=== PATIENT | female | born 2000 | race Hispanic/Latino ===

== ENCOUNTER 2023-01-23 17:31 | Emergency (ER) | payer OTHER ==
[~2023-01-23] VITALS: Ht 157.5 cm; Wt 97.5 kg
[2023-01-23 18:06] LABS: BASOPHILS # (AUTO) 0.03 K/uL (0.00-0.20); BASOPHILS % (AUTO) 0.2 % (0.0-5.0); EOSINOPHILS # (AUTO) 0.41 K/uL (0.00-0.70); EOSINOPHILS % (AUTO) 3.2 % (0.0-8.0); IMMATURE GRANULOCYTE ABSOLUTE 0.04 K/uL (0-1); LYMPHOCYTES # (AUTO) 2.3 K/uL (1.0-4.8); LYMPHOCYTES % (AUTO) 18.1 % (21.0-51.0); MEAN CORPUSCULAR HEMOGLOBIN 29.1 pg (27.0-33.0); MEAN CORPUSCULAR HGB CONC 33.3 g/dL (32.0-36.0); MEAN CORPUSCULAR VOLUME 87.2 fL (79-99); MONOCYTES # (AUTO) 0.7 K/uL (0.1-1.0); MONOCYTES % (AUTO) 5.2 % (3.0-13.0); NEUTROPHILS # (AUTO) 9.4 K/uL (1.8-7.7); PLATELET COUNT (AUTO) 305 K/uL (130-400); RED BLOOD CELL COUNT(AUTO) 4.13 MIL/uL (4.00-5.50); RED CELL DISTRIBUTION WIDTH 13.5 % (11.0-15.5); WHITE BLOOD COUNT (AUTO) 12.8 K/uL (4.8-10.8)
[2023-01-23 18:19] LABS: CREATININE 0.6 mg/dL (0.5-1.5); POTASSIUM 3.2 mmol/L (3.5-5.1)
[2023-01-23 18:25] LABS: ALBUMIN 3.2 g/dL (3.5-5.0); BILIRUBIN,TOTAL 0.4 mg/dL (0.2-1.0); TOTAL PROTEIN, SERUM 7.4 g/dL (6.0-8.3)
[2023-01-23 18:32] LABS: APPEARANCE,URINE CLEAR (CLEAR); BILIRUBIN,URINE NEGATIVE (NEGATIVE); GLUCOSE, URINE (UA) NEGATIVE (NEGATIVE); KETONES,URINE 10 mg/dL (NEGATIVE); LEUKOCYTE ESTERASE ,URINE NEGATIVE Leu/uL (NEGATIVE); NITRATE,URINE NEGATIVE (NEGATIVE); OCCULT BLOOD,URINE MODERATE (NEGATIVE); PROTEIN,URINE NEGATIVE (NEGATIVE); UROBILINOGEN,URINE 0.2 mg/dL (0.2-1.0)
[2023-01-23 18:34] LABS: ADD UA MICROSCOPIC YES; COLOR,URINE LIGHT-YELLOW (YELLOW); HCG,QUALITATIVE URINE NEGATIVE (NEGATIVE)
[2023-01-23 18:36] LABS: BACTERIA,URINE RARE /HPF (None Seen); RBC,URINE 0-1 /HPF (0-1); SQUAMOUS EPITHELIAL CELL,UR RARE /HPF (0-2); WBC,URINE 0-1 /HPF (0-1)
[2023-01-23] MEDS ORDERED: CEFTRIAXONE 1G VIAL IM ONE (20:00)
[2023-01-23] MEDS ORDERED: LIDOCAINE HCL 1% 20 ML VIAL ONE (20:04)
[2023-01-23] MEDS ORDERED: AMOX1TAB16 PO (20:18)
[2023-01-23] MEDS ORDERED: IBUP-1493 PO (20:18)
[2023-01-23] MEDS ORDERED: ZOSYN 3.375GM +NS 50ML IV ONE (20:30)
[2023-01-23] MEDS ORDERED: VANCOMYCIN KIT 1 GM/250 ML IV.KIT IV ONE (20:30)
[2023-01-23 20:33] VITALS: BP 118/65; PULSE 75; RESP 17; O2SAT 98
[2023-01-23] MEDS ORDERED: ACETAMINOPHEN WITH CODEINE 1 TAB TAB PO ONE (21:30)
== END 2023-01-23 23:41 | disposition home or self-care (01) ==
LOC: EDH 17:31
DX: N61.1 Abscess of the breast and nipple (principal)
CPT/HCPCS: 99285; 10160; 96365; 71045; 96375; 80053; 85025; 87040 ×2; 87076; 83605; 81001; 81025; 36415; 76642; 96372; 87070; J0696; J2543; J3370; 96374